=== PATIENT | male | born 1970 | race Caucasian/White ===

== ENCOUNTER 2018-01-21 15:53 | Emergency (ER) | payer MEDICAID ==
[~2018-01-21] VITALS: Ht 167.6 cm; Wt 74.8 kg
[~2018-01-21 15:53] MED LIST: ACCUNEB SO1.25 MG/1 INH; BAYER CHEWABLE81 MG PO; FOLIC ACID1 MG PO; HALOPERIDOL 2 MG2 M1 PO; INCRUSE ELLI62.5 MCG IH; INCRUSE ELLI62.5 MCG INH; LEVAQUIN 750 M750 MG PO; LIPITOR10 MG PO; MILK OF MA2400 MG/10 PO; MINOCIN100 MG PO; NICOTINE TRANSD21 M1 TRANSDERM; NYSTATIN SWISH&SPIT; POTASSIUM20 PO; PREDNISONE 10 M10 MG PO; REMERON15 MG PO; TOPAMAX 25 MG T25 M1 PO
[2018-01-21] MEDS ORDERED: REVIA 50 MG TAB50 MG PO (16:15)
[2018-01-21] MEDS ORDERED: PRAZOSIN 1 MG CA1 MG PO (16:17)
[2018-01-21] MEDS ORDERED: INCRUSE INHALER INH (16:18)
[2018-01-21] MEDS ORDERED: NEURONTIN300 MG PO (16:18)
[2018-01-21] MEDS ORDERED: ROBAXIN500 MG PO (16:21)
[2018-01-21 16:29] LABS: HEMATOCRIT 48.6 % (42.0-52.0); HEMOGLOBIN 16.5 gm/dL (14.0-18.0); MCH 29.6 pg (26.0-34.0); MCV 87.2 fL (80.0-100.0); NUCLEATED RBCS 0 /100WBC; PLATELET COUNT* 245 thou/uL (150-400); RBC 5.58 mil/uL (4.50-6.00); RDW-CV 13.8 % (10.5-14.5); WBC 10.1 thou/uL (4.0-11.0)
[2018-01-21 16:38] LABS: ANION GAP 10 mmol/L (7-16); BUN 16 mg/dL (7-18); CALCIUM 8.7 mg/dL (8.5-10.1); CHLORIDE 104 mmol/L (98-107); CO2 25 mmol/L (21-32); CREATININE 1.1 mg/dL (0.6-1.3); GLUCOSE 141 mg/dL (70-99); POTASSIUM 3.5 mmol/L (3.5-5.1); SODIUM 139 mmol/L (136-145)
[2018-01-21 16:44] LABS: ALBUMIN 3.4 g/dL (3.4-5.0); ALKALINE PHOSPHATASE 84 U/L (46-116); LIPASE 95 U/L (73-393); SGOT 25 U/L (15-37); SGPT 47 U/L (30-65); TOTAL BILIRUBIN 0.4 mg/dL (<0.1-1.0); TOTAL PROTEIN 6.9 g/dL (6.4-8.2); TROPONIN-I LEVEL <0.06 ng/mL (<0.06)
[2018-01-21 17:03] LABS: ABSOLUTE BASOPHILS 0.1 thou/uL (0.0-0.2); ABSOLUTE EOSINOPHILS 0.1 thou/uL (0.0-0.7); ABSOLUTE LYMPHOCYTES 2.9 thou/uL (0.8-5.3); ABSOLUTE MONOCYTES 0.3 thou/uL (0.0-1.2); ABSOLUTE NEUTROPHILS 6.7 thou/uL (1.6-8.1); PLATELET ESTIMATE ADEQUATE
[2018-01-21 18:00] VITALS: BP 132/77
--- NOTE | 2018-01-22 10:46 | EKG ---
[place] [address] ELECTROCARDIOGRAM REPORT Name: KESHA,PIETRO Room: [facility]#: [id number] Admission: 01/21/18 Attend Phys: Discharge: 01/21/18 Date of : 72 Report #: [id number] THIS REPORT FOR: //name// [facility] ED Test Date: 2018-01-21 Test Time: 15:58:54 Pat Name: PIETRO REBOLLEDO Department: Room: Gender: M Aircraft Captain: Loretta ANG : 1970 Requested By: Glenda Isaacs Order Number: [id number] MD: Toy Sommer Measurements Intervals [place] Rate: 104 P: 48 HI: 133 QRS: 18 QRSD: 82 T: 77 QT: 327 QTc: 430 Interpretive Statements Sinus tachycardia Probable left atrial enlargement Low voltage, precordial leads Baseline wander in lead(s) V2 Compared to ECG 07/28/2017 10:41:27 Low QRS voltage now present Sinus rhythm no longer present ST (T wave) deviation no longer present Early repolarization no longer present Electronically Signed On 01-22-2018 10:46:41 CDT by Toy Sommer [email or web address] <ELECTRONICALLY SIGNED> By: Toy Sommer MD, FACC 01/22/18 1046 1558 1558 Toy Sommer MD, FAC /EPI
== END 2018-01-21 18:58 | disposition home or self-care (01) ==
LOC: M.ERS 15:53
PROVIDERS: Personal Emergency Response Attendant
DX: M94.0 Chondrocostal junction syndrome [Tietze] (principal); F20.9 Schizophrenia, unspecified; J44.9 Chronic obstructive pulmonary disease, unspecified; F17.210 Nicotine dependence, cigarettes, uncomplicated; Z86.73 Personal history of transient ischemic attack (TIA), and cerebral infarction without residual deficits; Z88.8 Allergy status to other drugs, medicaments and biological substances